=== PATIENT | female | born 1970 | race African-American/Black ===

== ENCOUNTER → 2018-09-20 | Outpatient (CLI) | payer OTHER ==
[~2018-09-20] MED LIST: ADV100INH INH; ALBU83IN INH; CYCL10TA PO; DOCU10CA PO; LISI-542 PO; LISI20TA20 PO; LORTAB PO; NEXI20CA PO
[2018-09-20 18:08] LABS: BASO % 0.4 % (0.0-1.0); EOS # 0.1 10^3/uL (0.0-0.50); EOS % 1.6 % (0.0-3.0); HEMATOCRIT 35.9 % (36.0-47.0); LYMPH # 2.4 10^3/uL (1.5-4.5); LYMPH % 28.5 % (24.0-44.0); MEAN CORPUSCULAR HEMOGLOBIN 30.8 pg (27.0-33.0); MEAN CORPUSCULAR HGB CONC 33.4 g/dl (32.0-36.5); MEAN CORPUSCULAR VOLUME 92.3 fl (80.0-96.0); MONO # 0.6 10^3/uL (0.0-0.8); MONO % 7.1 % (0.0-5.0); NEUTROPHILS # 5.1 10^3/uL (1.8-7.7); PLATELET COUNT, AUTOMATED 348 10^3/uL (150-450); RED BLOOD COUNT 3.89 10^6/uL (4.00-5.40); WHITE BLOOD COUNT 8.3 10^3/uL (4.0-10.0)
[2018-09-20 18:17] LABS: ALBUMIN 3.7 GM/DL (3.2-5.2); ALT/SGPT 45 U/L (12-78); BILIRUBIN,TOTAL 0.8 MG/DL (0.2-1.0); BLOOD UREA NITROGEN 11 MG/DL (7-18); CALCIUM LEVEL 9.3 MG/DL (8.5-10.1); CARBON DIOXIDE LEVEL 30 MEQ/L (21-32); CHLORIDE LEVEL 103 MEQ/L (98-107); CHOLESTEROL LEVEL 241 MG/DL (<200); CHOLESTEROL RISK RATIO 6.885 (<5); CREATININE FOR GFR 1.18 MG/DL (0.55-1.30); FERRITIN 54 NG/ML (8-252); GLOMERULAR FILTRATION RATE > 60.0 (>58); GLUCOSE, FASTING 154 MG/DL (70-100); HDL CHOLESTEROL 35 MG/DL (>40); IRON (FE) 89 UG/DL (50-170); LIPASE 160 U/L (73-393); MAGNESIUM LEVEL 1.8 MG/DL (1.8-2.4); NON-HDL-C 206 MG/DL; PERCENT SATURATION 21.2 % (13.2-45.0); POTASSIUM SERUM 3.9 MEQ/L (3.5-5.1); SODIUM LEVEL 139 MEQ/L (136-145); TOTAL IRON BINDING CAPACITY 419 UG/DL (250-450); TOTAL PROTEIN 7.4 GM/DL (6.4-8.2); TRIGLYCERIDES LEVEL 414 MG/DL (<150)
[2018-09-20 18:25] LABS: VITAMIN B12 LEVEL 745 PG/ML
[2018-09-20 18:26] LABS: FOLATE 13.4 NG/ML
[2018-09-20 18:31] LABS: HEMOGLOBIN A1c 7.4 %
[2018-09-20 18:37] LABS: CREATININE, URINE 86.5 MG/DL; MALB URINE SIEMENS 12.8 MG/L; MAU/CREAT RATIO 14.7 MCG/MG (0.0-30.0)
== END ==
LOC: M SMT 10:03
PROVIDERS: ATTEND Physician Assistant
DX: I10 Essential (primary) hypertension (principal); K29.00 Acute gastritis without bleeding; Z98.84 Bariatric surgery status

== ENCOUNTER 2018-09-25 12:05 | Emergency (ER) | payer OTHER ==
[~2018-09-25] VITALS: Ht 152.4 cm; Wt 71.8 kg
[~2018-09-25 12:05] MED LIST changes: -CYCL10TA PO
[2018-09-25] MEDS ORDERED: MORPHINE 2 MG/ML 1ML SYRINGE (J2270) IV PRN (13:30)
[2018-09-25] MEDS ORDERED: CYCLOBENZAPRINE 10 MG TAB PO ONE (15:45)
[2018-09-25] MEDS ORDERED: CYCL10TA PO (15:47)
[2018-09-25 16:04] VITALS: BP 118/80
--- NOTE | 2018-09-26 07:19 | REP ---
PELVIS AND LEFT HIP: AP view of the pelvis and AP and frog-leg views of the left hip are performed. There is no acute fracture or dislocation. Tendinous calcifications are seen at the anterior superior iliac crests bilaterally in a symmetrical pattern. There is mild narrowing and sclerosis at the sacroiliac joints. Hip joints are unremarkable. Calcific density in the left lower quadrant of the abdomen is chronic and may represent a phlebolith. IMPRESSION: No acute fracture or dislocation. Electronically Signed by Warner Moreno MD 09/26/2018 10:20 P
--- NOTE | 2018-09-26 07:21 | REP ---
LUMBOSACRAL SPINE: Five views of the lumbosacral spine performed. There is no compression fracture or malalignment. There is normal lumbar lordosis. There is no spondylolysis. There is mild disc space narrowing, subchondral sclerosis and spurring at the L5-S1 level, with sclerosis at the posterior facet joints at that level. Posterior elements are intact. Phlebolith is seen in the left lower quadrant of the abdomen. IMPRESSION: No acute fracture or dislocation. Mild degenerative changes. Electronically Signed by Warner Moreno MD 09/26/2018 10:20 P
== END 2018-09-25 16:07 | disposition home or self-care (01) ==
LOC: M ED 13:00
DX: S70.02XA Contusion of left hip, initial encounter (principal); W22.8XXA Striking against or struck by other objects, initial encounter; Y92.512 Supermarket, store or market as the place of occurrence of the external cause; Y93.9 Activity, unspecified; Y99.9 Unspecified external cause status; I10 Essential (primary) hypertension; Z98.84 Bariatric surgery status; Z72.0 Tobacco use; Z79.899 Other long term (current) drug therapy; Z91.040 Latex allergy status; Z91.89 Other specified personal risk factors, not elsewhere classified; Z91.018 Allergy to other foods; Z88.6 Allergy status to analgesic agent; Z88.8 Allergy status to other drugs, medicaments and biological substances; Z88.5 Allergy status to narcotic agent
CPT/HCPCS: 72110; 73502; 80047; 96374; 99284; J2270

== ENCOUNTER → 2018-10-05 | Outpatient (REF) | payer OTHER, MEDICAID ==
[~2018-10-05] MED LIST changes: +CYCL10TA PO; -LISI20TA20 PO; +LISI20TA3 PO
== END ==
LOC: M LAB REF 16:43
PROVIDERS: ATTEND Family Medicine
DX: R10.2 Pelvic and perineal pain (principal)

== ENCOUNTER → 2018-11-10 | Outpatient (REF) | payer OTHER, MEDICAID ==
[~2018-11-10] MED LIST changes: +LISI20TA20 PO; -LISI20TA3 PO
[2018-11-10 22:31] LABS: CHLAMYDIA DNA AMPLIFICATION NEGATIVE (NEGATIVE); GC DNA AMPLIFICATION NEGATIVE (NEGATIVE)
== END ==
LOC: M LAB REF 17:19
PROVIDERS: ATTEND Family Medicine
DX: N76.0 Acute vaginitis (principal)

== ENCOUNTER → 2018-12-24 | Outpatient (CLI) | payer OTHER, MEDICAID ==
[2018-12-24 19:12] LABS: HEMATOCRIT 35.1 % (36.0-47.0); HEMOGLOBIN 11.5 g/dl (12.0-15.5); MEAN CORPUSCULAR HEMOGLOBIN 29.1 pg (27.0-33.0); MEAN CORPUSCULAR HGB CONC 32.8 g/dl (32.0-36.5); MEAN CORPUSCULAR VOLUME 88.9 fl (80.0-96.0); PLATELET COUNT, AUTOMATED 345 10^3/uL (150-450); RED BLOOD COUNT 3.95 10^6/uL (4.00-5.40); WHITE BLOOD COUNT 8.3 10^3/uL (4.0-10.0)
[2018-12-24 19:28] LABS: ALBUMIN 3.8 GM/DL (3.2-5.2); ALT/SGPT 33 U/L (12-78); BILIRUBIN,TOTAL 0.6 MG/DL (0.2-1.0); BLOOD UREA NITROGEN 14 MG/DL (7-18); CALCIUM LEVEL 9.3 MG/DL (8.5-10.1); CARBON DIOXIDE LEVEL 28 MEQ/L (21-32); CHLORIDE LEVEL 101 MEQ/L (98-107); CHOLESTEROL LEVEL 220 MG/DL (<200); CHOLESTEROL RISK RATIO 6.111 (<5); CREATININE FOR GFR 1.04 MG/DL (0.55-1.30); GLOMERULAR FILTRATION RATE > 60.0 (>58); GLUCOSE, FASTING 164 MG/DL (70-100); HDL CHOLESTEROL 36 MG/DL (>40); NON-HDL-C 184 MG/DL; POTASSIUM SERUM 3.6 MEQ/L (3.5-5.1); SODIUM LEVEL 137 MEQ/L (136-145); THYROID STIMULATING HORMONE 0.455 uIU/ML (0.358-3.740); TOTAL PROTEIN 7.4 GM/DL (6.4-8.2); TRIGLYCERIDES LEVEL 516 MG/DL (<150)
[2018-12-24 19:35] LABS: MALB URINE SIEMENS 6.2 MG/L; MAU/CREAT RATIO 7.9 MCG/MG (0.0-30.0)
== END ==
LOC: M SMT 14:35
PROVIDERS: ATTEND Family Medicine
DX: E11.9 Type 2 diabetes mellitus without complications (principal); E66.9 Obesity, unspecified

== ENCOUNTER → 2019-11-25 | Outpatient (CLI) | payer OTHER ==
[~2019-11-25] MED LIST changes: +CHLO125TA PO; +CODCAP26 PO; +CYAN1000VL INJ; +CYCL-707 PO; -CYCL10TA PO; +ENOX40IN3 SC; +IRBE300T7 PO; +JARD1TAB3 PO; +LOVE0.8I SC; +METF500T13 PO; +PANT40TA29 PO; +WARF-23 PO
--- NOTE | 2019-12-07 09:04 | REP ---
CT CHEST WITHOUT CONTRAST: LOW-DOSE SCREENING EXAM HISTORY: Nicotine dependence. COMPARISON CHEST CT STUDY: 04/25/2014. CT FINDINGS: Preliminary digital delivery table feeder radiograph shows clips in the right upper quadrant and some linear fibrosis in the right lower lobe of the lung. Axial lung window images demonstrate mild linear fibrosis in the right lower lobe. No pulmonary mass or infiltrate is seen. No significant pulmonary nodule is appreciated. No bony destructive lesion is seen. 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 IMPRESSION: Lung-RADS Category [address] study suggested in one year. MTDD
== END ==
LOC: M RAD 13:58
PROVIDERS: ATTEND Specialist
DX: Z12.2 Encounter for screening for malignant neoplasm of respiratory organs (principal); F17.218 Nicotine dependence, cigarettes, with other nicotine-induced disorders